=== PATIENT | male | born 1985 | race African-American/Black ===

== ENCOUNTER → 2017-04-08 | Outpatient (CLI) | payer OTHER, MEDICAID ==
[~2017-04-08] MED LIST: BACT2OIN TOP; BACT800T5 PO; CORTI10A AD; Z.0.NO CURRENT MEDS
[2017-04-08 09:20] LABS: ANION GAP 8 MEQ/L (5-15); BICARBONATE 24.8 MEQ/L (21.0-32.0); BLOOD UREA NITROGEN 9 MG/DL (7-18); CHLORIDE 107 MEQ/L (98-107); GLOMERULAR FILTRATION RATE 141 ML/MIN (>89); GLUCOSE,FASTING 90 MG/DL (74-99); POTASSIUM 3.6 MEQ/L (3.5-5.1); SODIUM (NA) 140 MEQ/L (136-145)
[2017-04-08 09:30] LABS: HDL CHOLESTEROL 50.8 MG/DL (40.0-60.0); LDL CHOLESTEROL 55 MG/DL (0-99)
[2017-04-08 11:11] LABS: BASOPHIL % 0.4 % (0.0-2.0); EOSINOPHIL # 0.1 TH/MM3 (0-0.4); EOSINOPHIL % 0.7 % (0.0-4.0); HEMATOCRIT 48.2 % (39.0-51.0); HEMO FLAGS DIFF FINAL; LYMPH % 22.9 % (9.0-44.0); LYMPHOCYTE # 2.3 TH/MM3 (1.0-4.8); MEAN CELL VOLUME 84.7 FL (80.0-100.0); MEAN CORPUSCULAR HEMOGLOBIN 27.1 PG (27.0-34.0); MONO % 6.4 % (0.0-8.0); NEUT % 69.6 % (16.0-70.0); PLATELET COUNT 226 TH/MM3 (150-450); RED BLOOD COUNT 5.69 MIL/MM3 (4.50-5.90); RED CELL DISTRIBUTION WIDTH 13.7 % (11.6-17.2); WHITE BLOOD COUNT 10.1 TH/MM3 (4.0-11.0)
[2017-04-08 16:34] LABS: HEMOGLOBIN A1b 0.8 %; HEMOGLOBIN Ao 87.8 %; HEMOGLOBIN F 0.8 %; HEMOGLOBIN LA1C 1.7 %
== END ==
LOC: CLAB 08:23
DX: E03.9 Hypothyroidism, unspecified (principal); D64.9 Anemia, unspecified; E11.9 Type 2 diabetes mellitus without complications; E78.5 Hyperlipidemia, unspecified; Z13.228 Encounter for screening for other metabolic disorders
CPT/HCPCS: 36415; 80048; 80061; 83036; 84443; 85025

== ENCOUNTER 2018-01-05 09:48 | Emergency (ER) | payer MEDICARE ==
[~2018-01-05] VITALS: Ht 167.6 cm; Wt 60.0 kg
[~2018-01-05 09:48] MED LIST changes: -MUPI2%T TOPICAL
[2018-01-05 10:05] VITALS: BP 117/81; PULSE 86; RESP 16; TEMP 98.9; O2SAT 100
[2018-01-05] MEDS ORDERED: MUPI2%T TOPICAL (11:17)
[2018-01-05] MEDS ORDERED: BACT800T5 PO (11:17)
--- NOTE | 2018-01-05 11:17 | PD ---
HPI Chief Complaint: Skin Problem Time Seen by Provider: 11:01 Travel History International Travel<30 days: No Contact w/Intl Traveler<30days: No Traveled to known affect area: No History of Present Illness HPI 32-year-old male here with multiple pustules and scabs to his scalp for several weeks. He denies fever or chills. Using OTC triple antibiotic ointment with no improvement. Symptom severity is mild. No aggravating factors. PFSH Past Medical History Hx Anticoagulant Therapy: No Cardiovascular Problems: Yes Chemotherapy: No Cerebrovascular Accident: No Diabetes: No Hypertension: Yes Respiratory: No Social History Alcohol Use: No Tobacco Use: Yes Substance Use: No Allergies-Medications (Allergen,Severity, Reaction): Coded Allergies: benztropine (Unverified Allergy, Intermediate, DIZZY, 06/09/17) acetaminophen (Unverified Adverse Reaction, Unknown, 06/09/17) NAUSEA/VOMITING hydrocodone (Unverified Adverse Reaction, Unknown, 06/09/17) NAUSEA/VOMITING Reported Meds & Prescriptions Reported Meds & Active Scripts Active Bactroban Topical (Mupirocin) 22 Gm Cream 1 Applic TOPICAL BID Bactrim DS (Sulfamethoxazole-Trimethoprim) 800-160 Mg Tab 1 Tab PO BID Cortisporin Otic Solution (Neomycin/Polymyxin/Hydrocortisone) 10 Ml Soln 4 Drop AD QID Bactroban 2% Oint (22 gm) (Mupirocin) 22 Gm Oint 2 % TOP BID 10 Days APPLY TO AFFECTED AREAS Bactrim DS (Sulfamethoxazole-Trimethoprim DS) 1 Tab Tab 1 Tab PO BID Reported No Current Meds (Miscellaneous Medication) Misc Review of Systems Except as stated in HPI: all other systems reviewed are Neg General / Constitutional: No: Fever Physical Exam Narrative GENERAL: Alert well-appearing 32-year-old male SKIN: Warm and dry. Multiple pustules and scabs to the scalp. No evidence of abscess or surrounding cellulitis HEAD: Normocephalic. EYES: No injection or drainage. NECK: Supple Data Data Last Documented VS Vital Signs Date Time Temp Pulse Resp B/P (MAP) Pulse Ox O2 Delivery O2 Flow Rate FiO2 01/05/18 10:05 98.9 86 16 117/81 (93) 100 MDM Medical Decision Making Medical Screen Exam Complete: Yes Emergency Medical Condition: Yes Differential Diagnosis Folliculitis, abscess, cellulitis Narrative Course 32-year-old male here with folliculitis. He is well-appearing. He'll be treated with Bactrim Diagnosis Primary Impression: Folliculitis Referrals: Primary Care Physician Additional Instructions: Bactrim as directed. Wash the area daily with soap and water. Avoid picking Follow-up with her doctor Scripts Mupirocin Topical (Bactroban Topical) 22 Gm Cream 1 APPLIC TOPICAL BID for Mgmt Bacterial Infection, #1 TUBE 0 Refills Prov: Olga Mclean 01/05/18 Sulfamethoxazole-Trimethoprim (Bactrim DS) 800-160 Mg Tab 1 TAB PO BID for Infection, #20 TAB 0 Refills Prov: Olga Mclaen 01/05/18 Disposition: 01 DISCHARGE HOME Condition: Stable Olga Mclean Jan 05, 2018 11:17
== END 2018-01-05 11:28 | disposition home or self-care (01) ==
LOC: NEPK 09:48
DX: L73.9 Follicular disorder, unspecified (principal); I10 Essential (primary) hypertension; Z72.0 Tobacco use; Z88.5 Allergy status to narcotic agent
CPT/HCPCS: 99283

== ENCOUNTER → 2018-01-05 | Outpatient (CLI) | payer MEDICARE ==
[~2018-01-05] MED LIST changes: +MUPI2%T TOPICAL
[2018-01-05 10:11] LABS: BASOPHIL % 0.5 % (0.0-2.0); EOSINOPHIL # 0.1 TH/MM3 (0-0.4); EOSINOPHIL % 0.7 % (0.0-4.0); HEMATOCRIT 48.4 % (39.0-51.0); HEMOGLOBIN 16.4 GM/DL (13.0-17.0); LYMPH % 20.8 % (9.0-44.0); LYMPHOCYTE # 2.1 TH/MM3 (1.0-4.8); MEAN CELL VOLUME 87.3 FL (80.0-100.0); MEAN CORPUSCULAR HEMOGLOBIN 29.5 PG (27.0-34.0); MEAN CORPUSCULAR HGB CONC 33.8 % (32.0-36.0); MEAN PLATELET VOLUME 8.3 FL (7.0-11.0); MONO % 7.6 % (0.0-8.0); MONOCYTE # 0.7 TH/MM3 (0-0.9); NEUT % 70.4 % (16.0-70.0); PLATELET COUNT 295 TH/MM3 (150-450); RED BLOOD COUNT 5.54 MIL/MM3 (4.50-5.90); RED CELL DISTRIBUTION WIDTH 13.3 % (11.6-17.2); WHITE BLOOD COUNT 9.9 TH/MM3 (4.0-11.0)
[2018-01-05 10:29] LABS: CHOLESTEROL 97 MG/DL (120-200)
[2018-01-05 10:32] LABS: HDL CHOLESTEROL 53.8 MG/DL (40.0-60.0); LDL CHOLESTEROL 37 MG/DL (0-99); TRIGLYCERIDES 31 MG/DL (42-150)
[2018-01-05 16:23] LABS: HEMOGLOBIN A1C 4.6 % (4.3-6.0)
== END ==
LOC: CLAB 09:28
DX: F33.9 Major depressive disorder, recurrent, unspecified (principal); F41.1 Generalized anxiety disorder; F20.0 Paranoid schizophrenia
CPT/HCPCS: 36415; 80061; 83036; 85025

== ENCOUNTER 2018-03-01 22:20 | Emergency (ER) | payer MEDICARE ==
[~2018-03-01] VITALS: Ht 167.6 cm; Wt 65.0 kg
[~2018-03-01 22:20] MED LIST changes: +MUPI2%T TOPICAL
[2018-03-01 22:25] VITALS: BP 128/72; PULSE 83; RESP 18; TEMP 98.2; O2SAT 99
--- NOTE | 2018-03-02 01:20 | PD ---
HPI Chief Complaint: Skin Problem Time Seen by Provider: 00:33 Travel History International Travel<30 days: No Contact w/Intl Traveler<30days: No Traveled to known affect area: No History of Present Illness HPI Patient 32-year-old female presents emergency department for evaluation of scalp rash. Patient states he has a history of fungal rash on the scalp. He states his been gradually worsening over the past week, no nausea no vomiting diarrhea no history of HIV. Patient states his been told in the past and needs to be on antifungals but he states his regular physician will not prescribe them. Symptoms mild, gradually worsening over the past week but persisting for longer than that, location is scalp PFSH Past Medical History Hx Anticoagulant Therapy: No Cardiovascular Problems: Yes Chemotherapy: No Cerebrovascular Accident: No Diabetes: No Hypertension: Yes Respiratory: No Social History Alcohol Use: No Tobacco Use: Yes Substance Use: No Allergies-Medications (Allergen,Severity, Reaction): Coded Allergies: No Known Allergies (Unverified , 03/01/18) Reported Meds & Prescriptions Reported Meds & Active Scripts Active Bactroban Topical (Mupirocin) 22 Gm Cream 1 Applic TOPICAL BID Bactrim DS (Sulfamethoxazole-Trimethoprim) 800-160 Mg Tab 1 Tab PO BID Cortisporin Otic Solution (Neomycin/Polymyxin/Hydrocortisone) 10 Ml Soln 4 Drop AD QID Bactroban 2% Oint (22 gm) (Mupirocin) 22 Gm Oint 2 % TOP BID 10 Days APPLY TO AFFECTED AREAS Bactrim DS (Sulfamethoxazole-Trimethoprim DS) 1 Tab Tab 1 Tab PO BID Reported No Current Meds (Miscellaneous Medication) Misc Review of Systems Except as stated in HPI: all other systems reviewed are Neg Physical Exam Narrative GENERAL: Well-nourished, well-developed patient. SKIN: Focused skin assessment warm/dry. There are some scattered small pustules on the patient's scalp but no surrounding erythema or induration consistent with a fungal infection, there is also just left of midline in the posterior aspect of the neck and accumulation with central clearing consistent with tinea capitis with satellite lesions peer HEAD: Normocephalic. EYES: No scleral icterus. No injection or drainage. NECK: Supple, trachea midline. No JVD or lymphadenopathy. CARDIOVASCULAR: Regular rate and rhythm without murmurs, gallops, or rubs. RESPIRATORY: Breath sounds equal bilaterally. No accessory muscle use. GASTROINTESTINAL: Abdomen soft, non-tender, nondistended. MUSCULOSKELETAL: No cyanosis, or edema. BACK: Nontender without obvious deformity. No CVA tenderness. Data Data Last Documented VS Vital Signs Date Time Temp Pulse Resp B/P (MAP) Pulse Ox O2 Delivery O2 Flow Rate FiO2 03/01/18 22:25 98.2 83 18 128/72 (90) 99 Orders Orders Ed Discharge Order (03/02/18 01:20) MDM Medical Decision Making Medical Screen Exam Complete: Yes Emergency Medical Condition: No Differential Diagnosis Tinea capitis, kerion, cellulitis unlikely peer Narrative Course Patient room to the emergency department, this represents a chronic tinea capitis, not a medical emergency. Discussed the patient's a dramatic management and treatment including selenium shampoo. He is stable for discharge Diagnosis Primary Impression: Tinea capitis Additional Instructions: Use selsun blue champoo twice/day. Leave in hair for duration of shower or ten minutes then rinse clean. Disposition: 01 DISCHARGE HOME Condition: Stable Bo Borges MD March 02, 2018 01:20
== END 2018-03-02 02:15 | disposition home or self-care (01) ==
LOC: NEPC 22:20
DX: B35.0 Tinea barbae and tinea capitis (principal); I10 Essential (primary) hypertension; Z72.0 Tobacco use
CPT/HCPCS: 99282